=== PATIENT | female | born 1990 | race Caucasian/White ===

== ENCOUNTER 2018-09-20 07:35 | Emergency (ER) | payer MEDICAID, OTHER ==
[~2018-09-20] VITALS: Ht 157.5 cm; Wt 89.5 kg
[2018-09-20 07:44] VITALS: BP 136/82
--- NOTE | 2018-09-20 07:45 | NUR ---
BIB SELF [facility]IH C/O COUGH WITH GREEN PHLEGM, WATERY EYES, RUNNY NOSE, BL EAR PAIN AND SORE THROAT 10/10 X 2 DAYS. PT HAS TAKEN ROBITUSSIN WITH NO RELIEF. WHEEZING NOTED TO UPPER LOBES INSPIRATORY. HOB UP. BED SIDE RAILS UP X1. ON LOW BED POSITION, LOCKED. ER MADE AWARE OF PT STATUS.
--- NOTE | 2018-09-20 09:23 | NUR ---
Patient discharged with v/s stable. Written and verbal after care instructions given and explained. Patient alert, oriented and verbalized understanding of instructions. Ambulatory with steady gait. All questions addressed prior to discharge. ID band removed. Patient advised to follow up with PMD. Rx of Maribel Phillips given. Patient educated on indication of medication including possible reaction and side effects. Opportunity to ask questions provided and answered.
[2018-09-20 09:24] VITALS: BP 135/94
== END 2018-09-20 09:23 | disposition home or self-care (01) ==
LOC: MED 07:35
DX: B34.9 Viral infection, unspecified (principal)
CPT/HCPCS: 99283